=== PATIENT | female | born 1955 | race Caucasian/White ===

== ENCOUNTER → 2019-02-17 | Outpatient (CLI) | payer OTHER | LOC: RAD 11:32 | DX: Z12.31 Encounter for screening mammogram for malignant neoplasm of breast (principal) ==

== ENCOUNTER → 2019-08-25 | Outpatient (CLI) | payer OTHER | LOC: SJCVCIMAG 07:49 | DX: R00.0 Tachycardia, unspecified (principal); I10 Essential (primary) hypertension; E78.5 Hyperlipidemia, unspecified; E11.9 Type 2 diabetes mellitus without complications; Z79.82 Long term (current) use of aspirin; Z79.84 Long term (current) use of oral hypoglycemic drugs; Z79.4 Long term (current) use of insulin; Z79.899 Other long term (current) drug therapy ==

== ENCOUNTER → 2019-08-29 | Outpatient (CLI) | payer OTHER ==
[~2019-08-29] VITALS: Ht 157.5 cm; Wt 73.5 kg
[2019-08-29 08:53] VITALS: BP 144/57
[2019-08-29 09:03] LABS: HEMOGLOBIN 11.5 gm/dL (12.0-15.0); MCH 28.5 pg (26.0-34.0); MCHC 32.8 g/dL (28.0-37.0); MCV 86.8 fL (80.0-100.0); RBC 4.03 mil/uL (4.20-5.00); RDW 13.7 % (10.5-14.5); WBC 7.6 thou/uL (4.0-11.0)
[2019-08-29 09:35] LABS: CALCIUM 9.6 mg/dL (8.5-10.1); CREATININE 0.6 mg/dL (0.6-1.0); POTASSIUM 4.8 mmol/L (3.5-5.1)
--- NOTE | 2019-08-29 16:34 | EKG ---
[facility] [place] [address] ELECTROCARDIOGRAM REPORT Name: RAUL STEVENS Room #: REG [facility]#: [id number] Admission: 08/29/19 Attend Phys: Chris Fink Discharge: Date of : 57 Report #: [id number] THIS REPORT FOR: cc: Tereza Mckinnon MD, Nora P. MD Park, Jin S. 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
--- NOTE | 2019-09-01 12:21 | CATHLAB ---
[facility] [place] [address] INVASIVE PROCEDURE REPORT Name: RAUL STEVENS Room #: REG CLEMENTE Ivette.#: [id number] Admission: 08/29/19 Attend Phys: Chris Fink Discharge: Date of : 57 Report #: [id number] THIS REPORT FOR: cc: Tereza Mckinnon MD, Nora P. MD Lammoglia, Francisco J. MD ~ APPROVED REPORT Study performed: 08/29/2019 09:16:35 Patient Details Patient Status: Out-Patient Room #: The patient is a 64 year-old female Event Personnel Chris Fink Mannequin Molder, Nasima Suero RN RN, Isaias Robertson Brown, Roberta Monitor Procedures Performed Art Access - R femoral artery* Left Heart Cath w/or w/o Coronaries [id number] [facility] [address] Initial Mod Sed Same Phys/QHP 5y [id number] Hemostasis with Manual pressure, supervision of conscious sedation Indication Positive stress test, Chest pain Procedure Narrative The Right Groin^ was infiltrated with 1% Lidocaine subcutaneous anesthesia. A PINNACLE 4FR Sheath #[id number] sheath was inserted into the RFA 5F^. Coronary angiography was performed using coronary diagnostic catheters. The right coronary system was accessed and visualized with a JR4 catheter. The left coronary system was accessed and visualized with a JL4 catheter. Hemostasis was obtained with manual pressure following sheath removal without any complications. There was no hematoma. Intraoperative Conscious Sedation Sedation start time: 937 Case end Time: 1000 Versed 1 mg Fluoro Time: 2.11 minutes Dose: DAP 2203.10 cGycm2 322 mGy [facility] [address] [place] [address] INVASIVE PROCEDURE REPORT Name: RAUL STEVENS Room #: REG JANIS Winter#: [id number] Admission: 08/29/19 Attend Phys: Chris Chan Discharge: Date of : 57 Report #: [id number] Contrast Type and Amount: Omnipaque 35 ml Coronary Angiography The patient's coronary anatomy is right dominant. Diagnostic Cath Left Main Large-caliber vessel of normal origin bifurcates left anterior descending left circumflex is free of high-grade disease LAD Moderate caliber type II vessel which courses in the anterior interventricular sulcus giving rise to diagonal and septal branches in its course present tapers and terminates small bifurcating vessel at the left ventricular apex. No high-grade lesions are noted with only mild luminal irregularities noted Diagonal 1 Small-caliber vessel free of high-grade disease although there is some haziness in its proximal portion which may be a small nonobstructive plaque Diagonal 2 Small-caliber vessel free of high-grade disease Circumflex Moderate caliber nondominant vessel proceeds in the AV groove giving rise to 2 lateral wall marginal branches. These are moderate and small in size respectively which are free of high-grade disease. OM1 Small-caliber marginal branch without high-grade lesions noted as it courses along the lateral aspect of the heart to the ventricular apex OM2 Smaller caliber vessel without significant high-grade lesions Right Coronary Small-caliber vessel normal origin proceeds in the AV groove to the crux of the heart where a small-caliber posterior descending artery. No significant obstructive lesions are noted. R PDA Small-caliber vessel free of high-grade disease Left Ventriculography Left Ventriculography was not performed. Hemodynamics The aortic pressure is 169/66 mmHg with a mean of 95 mmHg. The left ventricular pressure is 180/12 mmHg with a mean of mmHg. The left ventricular end diastolic pressure is 28 mmHg. Conclusion 1. Essentially normal coronary arteries only mild plaquing in side branches 2. Normal hemodynamics [facility] [address] [address] INVASIVE PROCEDURE REPORT Name: RAUL STEVENS [id number] Admission: 08/29/19 Attend Phys: Chris Chan Discharge: Date of : 57 Report #: [id number] Recommendations Cardiac Risk Reduction Program Medical Therapy <ELECTRONICALLY SIGNED> By: Chris Fink MD 09/01/19 1220 1220 1220 Chris Fink MD /INF
== END | disposition home or self-care (01) ==
LOC: CATH 08:29
PROVIDERS: Internal Medicine
DX: R94.39 Abnormal result of other cardiovascular function study (principal); R07.9 Chest pain, unspecified; I25.10 Atherosclerotic heart disease of native coronary artery without angina pectoris; I10 Essential (primary) hypertension; E11.9 Type 2 diabetes mellitus without complications; E78.00 Pure hypercholesterolemia, unspecified; D64.9 Anemia, unspecified; Z98.890 Other specified postprocedural states; Z79.899 Other long term (current) drug therapy

== ENCOUNTER → 2020-08-02 | Outpatient (CLI) | payer OTHER | LOC: RAD 11:19 | PROVIDERS: ATTEND Family Medicine | DX: M47.816 Spondylosis without myelopathy or radiculopathy, lumbar region (principal); M54.41 Lumbago with sciatica, right side; M54.42 Lumbago with sciatica, left side; R29.890 Loss of height ==

== ENCOUNTER → 2021-02-22 | Outpatient (CLI) | payer OTHER | LOC: ULTRA 08:58 | PROVIDERS: ATTEND Family Medicine | DX: R10.84 Generalized abdominal pain (principal); R10.11 Right upper quadrant pain; R10.12 Left upper quadrant pain ==